=== PATIENT | male | born 1995 | race Caucasian/White ===

== ENCOUNTER 2016-10-05 07:18 | Emergency (ER) | payer OTHER ==
[~2016-10-05] VITALS: Ht 177.8 cm; Wt 77.3 kg
[2016-10-05 07:20] VITALS: BP 122/70
[2016-10-05] MEDS ORDERED: FLUORESCEIN OPHTHALMIC 1 MG STRIP ONE (07:28)
[2016-10-05] MEDS ORDERED: PROPARACAINE OPHTH 0.5%, 15ML ONE (07:28)
== END 2016-10-05 08:30 | disposition home or self-care (01) ==
LOC: ED 08:11
DX: H10.31 Unspecified acute conjunctivitis, right eye (principal)
CPT/HCPCS: 99283

== ENCOUNTER 2017-02-06 16:19 | Emergency (ER) | payer OTHER ==
[~2017-02-06] VITALS: Ht 177.8 cm; Wt 75.0 kg
[2017-02-06] MEDS ORDERED: ONDANSETRON 2MG/ML, 2ML IVPush ONE (17:00)
[2017-02-06] MEDS ORDERED: MORPHINE SULFATE 4 MG/ML, 1ML IV PRN (17:00)
[2017-02-06] MEDS ORDERED: LIDOCAINE 1%-EPI 1:100K, 20ML SQ ONE (17:00)
[2017-02-06] MEDS ORDERED: SODIUM CHLORIDE 0.9% 1,000ML IVBOLUS ONE (17:00)
[2017-02-06] MEDS ORDERED: AMPICILLIN/SULBACTAM 3 GM in SODIUM CHLORIDE 0.9% 100 ML IVPB ONE (17:00)
[2017-02-06] MEDS ORDERED: SODIUM CHLORIDE FLUSH 10ML SYR IVF ONE (17:00)
[2017-02-06 17:11] LABS: HEMATOCRIT 42.8 % (39.2-51.8); HEMOGLOBIN 14.6 g/dL (13.7-18.0); WHITE BLOOD COUNT 14.9 x10^3/uL (3.4-10)
[2017-02-06 17:23] LABS: BLOOD UREA NITROGEN 12 mg/dL (7-18)
[2017-02-06] MEDS ORDERED: MORPHINE SULFATE 4 MG/ML, 1ML ONE (18:55)
[2017-02-06] MEDS ORDERED: ONDANSETRON 2MG/ML, 2ML ONE (18:56)
[2017-02-06] MEDS ORDERED: OMNIPAQUE 350 MG/ML, 100ML BOTTLE ONE (19:35)
[2017-02-06 20:45] VITALS: BP 104/63
== END 2017-02-06 20:57 | disposition home or self-care (01) ==
LOC: ED 20:51
DX: L03.211 Cellulitis of face (principal); F11.10 Opioid abuse, uncomplicated
CPT/HCPCS: 36415; 70491; 80048; 82040; 83605; 85025; 87040; 96374; 99285; J0295; J2405; J7030; Q9967